=== PATIENT | male | born 1980 | race Caucasian/White ===

== ENCOUNTER 2018-01-20 16:14 | Observation (INO) | payer OTHER ==
[~2018-01-20] VITALS: Ht 180.3 cm; Wt 64.8 kg
[2018-01-20] MEDS ORDERED: HYDROcodone/APAP 5/325 TABLET ONE ×2 (16:59→20:08)
[2018-01-20] MEDS ORDERED: SODIUM CHLORIDE FLUSH 10ML SYR IVF ONE ×2 (17:00→18:30)
[2018-01-20] MEDS ORDERED: HYDROcodone/APAP 5/325 TABLET PO ONE ×2 (17:00→20:00)
[2018-01-20] MEDS ORDERED: AMPICILLIN/SULBACTAM 3 GM in SODIUM CHLORIDE 0.9% 100 ML IV ONE (18:30)
[2018-01-20 18:59] LABS: BASOPHILS % (AUTO) 1 % (0-1); EOSINOPHILS # (AUTO) 0.12 x10^3/uL (0-0.4); EOSINOPHILS % (AUTO) 1 % (1-7); LYMPHOCYTES # (AUTO) 1.71 x10^3/uL (1-3.4); LYMPHOCYTES % (AUTO) 13 % (22-44); MD NO; MEAN CORPUSCULAR HEMOGLOBIN 31.2 pg (27.5-34.5); MEAN CORPUSCULAR HGB CONC 34.2 g/dL (33.2-36.2); MEAN CORPUSCULAR VOLUME 91.2 fL (81-97); MEAN PLATELET VOLUME 8.4 fL (7.4-10.4); MONOCYTES # (AUTO) 0.85 x10^3/uL (0.2-0.8); MONOCYTES % (AUTO) 6 % (2-9); NEUTROPHILS # (AUTO) 10.72 x10^3/uL (1.8-6.8); NEUTROPHILS % (AUTO) 80 % (42-75); PLATELET COUNT 199 x10^3/uL (130-400); RED BLOOD COUNT 4.12 x10^6/uL (4.38-5.82)
[2018-01-20 19:09] LABS: ANION GAP 11 mmol/L (5-15); CALCIUM 8.5 mg/dL (8.5-10.1); CHLORIDE 107 mmol/L (98-107); CREATININE 0.79 mg/dL (0.7-1.3)
[2018-01-20] MEDS ORDERED: SODIUM CHLORIDE FLUSH 10ML SYR IVF PRN (20:30)
[2018-01-20] MEDS ORDERED: BALANCED SALT OPHTH IRRIG SOLN 18ML ONE (20:37)
[2018-01-20] MEDS ORDERED: LIDOCAINE 1%-EPI 1:100K, 30ML ONE (20:38)
[2018-01-20] MEDS ORDERED: OXYMETAZOLINE NASAL SPRAY 0.05%, 15ML ONE (20:38)
[2018-01-20] MEDS ORDERED: MIDAZOLAM 1 MG/ML, 2ML ONE (21:00)
[2018-01-20] MEDS ORDERED: FENTANYL PF 100 MCG/2ML ONE ×2 (21:00→22:21)
[2018-01-20] MEDS ORDERED: SUCCINYLCHOLINE 20 MG/ML, 10ML ONE (21:07)
[2018-01-20] MEDS ORDERED: NEOSTIGMINE 1 MG/ML, 10ML ONE (21:07)
[2018-01-20] MEDS ORDERED: DEXAMETHASONE 4 MG/ML, 1ML ONE (21:07)
[2018-01-20] MEDS ORDERED: ROCURONIUM 10 MG/ML,10ML ONE (21:07)
[2018-01-20] MEDS ORDERED: KETOROLAC 30 MG/1 ML ONE (21:07)
[2018-01-20] MEDS ORDERED: CEFAZOLIN 1,000 MG ONE (21:07)
[2018-01-20] MEDS ORDERED: ONDANSETRON 2MG/ML, 2ML ONE (21:07)
[2018-01-20] MEDS ORDERED: GLYCOPYRROLATE 0.2MG/1ML, 5ML ONE (21:07)
[2018-01-20] MEDS ORDERED: PROPOFOL 10 MG/ML, 20ML ONE (21:07)
[2018-01-20] MEDS ORDERED: LIDOCAINE 1%-EPI 1:100K, 30ML IM ONE (21:24)
[2018-01-20] MEDS ORDERED: ONDANSETRON 2MG/ML, 2ML IV PRN (21:30)
[2018-01-20] MEDS ORDERED: OXYcodone 5 MG/5 ML ORAL.SOL UDC PO PRN (21:30)
[2018-01-20] MEDS ORDERED: EPHEDRINE 50 MG/ML, 1ML IVPush PRN (21:30)
[2018-01-20] MEDS ORDERED: MEPERIDINE/PF 25MG/0.5ML IVPush PRN (21:30)
[2018-01-20] MEDS ORDERED: PROMETHAZINE 25 MG/ML, 1ML IV PRN (21:30)
[2018-01-20] MEDS ORDERED: ALBUTEROL SULFATE 2.5 MG/3 ML NPPB PRN (21:30)
[2018-01-20] MEDS ORDERED: MIDAZOLAM 1 MG/ML, 2ML IV PRN (21:30)
[2018-01-20] MEDS ORDERED: hydrALAzine 20 MG/ML, 1ML IV PRN (21:30)
[2018-01-20] MEDS ORDERED: LABETALOL 5MG/ML, 20ML IV PRN (21:30)
[2018-01-20] MEDS ORDERED: HYDROcodone/APAP 7.5-325MG/15ML UDC PO PRN (21:30)
[2018-01-20] MEDS: FENTANYL PF 100 MCG/2ML IV PRN ×2 (22:21→22:34)
[2018-01-20] MEDS ORDERED: HYDROmorphone 2 MG/ML, 1ML ONE (22:21)
[2018-01-20] MEDS: HYDROmorphone 1 MG/ML, 1ML IV PRN ×2 (22:23→22:36)
[2018-01-20 23:15] VITALS: BP 107/78
[2018-01-21] MEDS: HYDROcodone/APAP 7.5-325MG/15ML UDC PO PRN ×5 (00:17→16:20)
[2018-01-21 02:58] VITALS: BP 111/62
[2018-01-21 06:47] VITALS: BP 117/70
[2018-01-21 12:28] VITALS: BP 111/71
== END 2018-01-21 17:16 | disposition home or self-care (01) ==
LOC: ED 19:20 → EDIP 20:18 → INTOOBSV 20:18 → 4NOR 22:46 → DCLOUNGE 01-21 17:05
PROVIDERS: ADMIT Otolaryngology Facial Plastic Surgery; ATTEND Otolaryngology Facial Plastic Surgery
DX: S02.612A Fracture of condylar process of left mandible, initial encounter for closed fracture (principal); X58.XXXA Exposure to other specified factors, initial encounter; Y93.89 Activity, other specified; Y92.89 Other specified places as the place of occurrence of the external cause; Y99.8 Other external cause status; F12.90 Cannabis use, unspecified, uncomplicated; Z59.0 Homelessness
CPT/HCPCS: 21110; 36415; 70487; 80048; 82040; 85025; 96365; 99285; C1713; G0378; J0295; J0330; J0690; J1100; J1170; J1885; J2250; J2405; J2704; J2710; J3010; J3490

== ENCOUNTER 2018-01-24 18:00 | Emergency (ER) | payer SELFPAY ==
[~2018-01-24] VITALS: Ht 180.3 cm; Wt 62.0 kg
[2018-01-24 18:18] VITALS: BP 156/79
[2018-01-24] MEDS ORDERED: ONDANSETRON ODT 4 MG PO ONE (18:30)
[2018-01-24] MEDS ORDERED: HYDROcodone/APAP 7.5-325MG/15ML UDC PO ONE (18:30)
[2018-01-24] MEDS ORDERED: ONDANSETRON ODT 4 MG ONE (18:41)
[2018-01-24] MEDS ORDERED: HYDROcodone/APAP 7.5-325MG/15ML UDC ONE (18:41)
== END 2018-01-24 19:47 | disposition home or self-care (01) ==
LOC: ED 19:35
DX: Z76.0 Encounter for issue of repeat prescription (principal); S02.609D Fracture of mandible, unspecified, subsequent encounter for fracture with routine healing; F17.200 Nicotine dependence, unspecified, uncomplicated; X58.XXXD Exposure to other specified factors, subsequent encounter
CPT/HCPCS: 99283; Q0162

== ENCOUNTER 2018-03-02 08:37 | Day surgery (SDC) | payer MEDICAID ==
[~2018-03-02] VITALS: Ht 180.3 cm; Wt 61.5 kg
[2018-03-02] MEDS ORDERED: LIDOCAINE 1%-EPI 1:100K, 30ML ONE (10:00)
[2018-03-02] MEDS ORDERED: NEO/BACI/POLY/HC OINT 15GM ONE (10:00)
[2018-03-02] MEDS ORDERED: OXYMETAZOLINE NASAL SPRAY 0.05%, 15ML ONE (10:00)
[2018-03-02] MEDS ORDERED: LACTATED RINGERS 1,000 ML IV SCH (11:58)
[2018-03-02] MEDS ORDERED: NONE PER PT (11:59)
[2018-03-02] MEDS ORDERED: LIDOCAINE-MPF 1%, 2ML INFIL ONE (12:00)
[2018-03-02 12:01] VITALS: BP 113/73
[2018-03-02] MEDS ORDERED: FENTANYL PF 100 MCG/2ML ONE (15:47)
[2018-03-02] MEDS ORDERED: MIDAZOLAM 1 MG/ML, 2ML ONE (15:47)
[2018-03-02] MEDS ORDERED: PROPOFOL 10 MG/ML, 20ML ONE (15:52)
[2018-03-02] MEDS ORDERED: CEFAZOLIN 1,000 MG ONE (15:52)
[2018-03-02] MEDS ORDERED: SUCCINYLCHOLINE 20 MG/ML, 10ML ONE (15:52)
[2018-03-02] MEDS ORDERED: LIDOCAINE 4%, 4 ML SYR/CANN TP ONE (15:52)
[2018-03-02] MEDS ORDERED: PROMETHAZINE 25 MG/ML, 1ML IV PRN (16:30)
[2018-03-02] MEDS ORDERED: ACETAMINOPHEN 325 MG TABLET PO PRN (16:30)
[2018-03-02] MEDS ORDERED: FENTANYL PF 100 MCG/2ML IV PRN (16:30)
[2018-03-02] MEDS ORDERED: ONDANSETRON 2MG/ML, 2ML IV PRN (16:30)
[2018-03-02] MEDS ORDERED: MORPHINE SULFATE 4 MG/ML, 1ML IVPush PRN (16:30)
[2018-03-02] MEDS ORDERED: KETOROLAC 30 MG/1 ML IV PRN (16:30)
[2018-03-02] MEDS ORDERED: OXYcodone 5 MG/5 ML ORAL.SOL UDC PO PRN (16:30)
[2018-03-02] MEDS ORDERED: ONDANSETRON ODT 8 MG PO PRN (16:30)
[2018-03-02] MEDS ORDERED: MIDAZOLAM 1 MG/ML, 2ML IV PRN (16:30)
[2018-03-02] MEDS ORDERED: OXYcodone 5 MG/5 ML ORAL.SOL UDC ONE (16:37)
== END 2018-03-02 18:40 | disposition home or self-care (01) ==
LOC: OUT 08:37
PROVIDERS: ATTEND Otolaryngology Facial Plastic Surgery
DX: Z47.2 Encounter for removal of internal fixation device (principal)
CPT/HCPCS: 20670; J0330; J0690; J2250; J2704; J3010; J7120; J3490